=== PATIENT | female | born 2000 | race Asian ===

== ENCOUNTER 2022-01-02 22:58 | Inpatient (IN) ==
[2022-01-02 23:57] LABS: ABS Eosinophils 0.1 10^3/ul (0-0.6); ABS Lymphocytes 2.5 10^3/ul (1.0-4.8); ABS Monocytes 0.5 10^3/ul (0-0.8); ABS Neutrophils 2.7 10^3/ul (1.5-7.7); Eosinophil % 2.5 %; Hematocrit 43 % (35-47); Hemoglobin 14.7 g/dL (12.0-16.0); Mean Corpuscular HGB Conc 34 g/dL (31-36); Mean Corpuscular Hemoglobin 31 pg (27-31); Mean Corpuscular Volume 90 fL (80-97); Mean Platelet Volume 8.6 fL (7.4-10.4); Nucleated Red Blood Cells % 0.1; Platelet Count 248 10^3/uL (150-450); Red Blood Count 4.77 10^6 /uL (3.70-4.87); Red Cell Distribution Width 14 % (10-15); White Blood Count 5.9 10^3/uL (3.5-10.8)
[2022-01-02 23:57] LABS: Urine Appearance Cloudy; Urine Bilirubin 1+ (Negative); Urine Blood Negative (Negative); Urine Color Yellow; Urine Glucose Negative (Negative); Urine Ketones Negative (Negative); Urine Nitrite Negative (Negative); Urine Protein 2+(100 mg/dL) (Negative); Urine Specific Gravity 1.029 (1.002-1.030); Urine Urobilinogen Negative (Negative)
[2022-01-03 00:08] LABS: Urine Bacteria 1+ (Absent); Urine Red Blood Cell Trace(0-2/hpf) (Absent); Urine Squamous Epithelial Cell Present (Absent); Urine White Blood Cell 1+(6-10/hpf) (Absent)
[2022-01-03 00:10] LABS: Urine Benzodiazepine Screen None Detected (None Detect); Urine Cannabinoids Screen None Detected (None Detect); Urine Opiates Screen None Detected (None Detect)
[2022-01-03 00:25] LABS: ALT 7 U/L (7-52); AST 13 U/L (13-39); Acetaminophen < 15 mcg/mL; Albumin 4.2 g/dL (3.2-5.2); Albumin/Globulin Ratio 1.4 (1-3); Alcohol, S < 13 mg/dL (<13); Alkaline Phosphatase 55 U/L (35-149); Anion Gap 8 mmol/L (2-11); Blood Urea Nitrogen 14 mg/dL (6-24); CO2 Carbon Dioxide 26 mmol/L (22-32); Chloride 101 mmol/L (101-111); Globulin 2.9 g/dL (2-4); Glucose 92 mg/dL (70-100); Potassium 3.6 mmol/L (3.5-5.0); Salicylate < 2.50 mg/dL (<30); Sodium 135 mmol/L (135-145); Total Protein 7.1 g/dL (6.4-8.9); eGFR CKD-EPI 106.5 (>60)
[2022-01-03 00:38] LABS: TSH Ultra Thyroid Stim Horm 3.21 mcIU/mL (0.34-5.60)
[2022-01-03] MEDS ORDERED: Al Hydrox/Mg Hydrox/Simet LIQ 30 ML UDC PO PRN (04:25)
[2022-01-03] MEDS: Multivitamins/Minerals TAB PO SCH (09:11)
[2022-01-03] MEDS: CMC:Desvenlafaxine 50 mg TAB (NF) PO SCH (14:44)
[2022-01-04 08:43] LABS: HDL Cholesterol 48.2 mg/dL
[2022-01-04] MEDS: Multivitamins/Minerals TAB PO SCH (09:13)
[2022-01-04] MEDS: CMC:Desvenlafaxine 50 mg TAB (NF) PO SCH (09:13)
[2022-01-05] MEDS: Multivitamins/Minerals TAB PO SCH (07:54)
[2022-01-05 10:00] VITALS: BP 104/60
[2022-01-05] MEDS: CMC:Desvenlafaxine 50 mg TAB (NF) PO SCH (10:08)
== END 2022-01-05 15:00 | disposition home or self-care (01) | DRG 881 ==
LOC: ED 22:58 → BSU 01-03 03:45
PROVIDERS: ADMIT Psychiatry & Neurology Psychiatry; ATTEND Psychiatry & Neurology Psychiatry